=== PATIENT | female | born 1960 | race Caucasian/White ===

== ENCOUNTER 2023-06-20 10:51 | Day surgery (SDC) | payer OTHER ==
[2023-06-13 14:53] VITALS: BMI 25.4
[2023-06-20 11:09] VITALS: TEMP 97.9
[2023-06-20 12:52] VITALS: BP 100/57; PULSE 67; RESP 19
== END 2023-06-20 12:45 | disposition home or self-care (01) ==
LOC: FASU-ENDO 10:51
PROVIDERS: ATTEND Internal Medicine Gastroenterology
PROC: 0DB68ZX Excision of Stomach, Via Natural or Artificial Opening Endoscopic, Diagnostic (ICD-10-PCS; 2023-06-20)
PROC: 0DB48ZX Excision of Esophagogastric Junction, Via Natural or Artificial Opening Endoscopic, Diagnostic (ICD-10-PCS; 2023-06-20)
PROC: 0DB98ZX Excision of Duodenum, Via Natural or Artificial Opening Endoscopic, Diagnostic (ICD-10-PCS; principal; 2023-06-20 11:52)
DX: K44.9 Diaphragmatic hernia without obstruction or gangrene (principal); R10.13 Epigastric pain; Z87.11 Personal history of peptic ulcer disease